=== PATIENT | female | born 2000 | race Asian ===

== ENCOUNTER 2022-04-06 23:33 | Emergency (ER) | payer OTHER ==
[~2022-04-06] VITALS: Ht 152.4 cm; Wt 59.9 kg
--- NOTE | 2022-04-07 | NUR ---
BIBS W/ MOM. "DYSTONIA" AND FEELING BURNING UP ENTIRE BODY. PATIENT IS AAOX4. ANXIOUS. -CP, -SOB. PLACED COMFORTABLY IN BED. VITALS CHECKED.
[2022-04-07] MEDS ORDERED: diphenhydrAMINE HCL 50 MG/ML VIAL ONE (00:04)
--- NOTE | 2022-04-07 00:12 | NUR ---
EKG DONE AT BEDSIDE
[2022-04-07] MEDS ORDERED: diphenhydrAMINE HCL 50 MG/ML VIAL IV ONE (00:30)
[2022-04-07 00:31] LABS: BASOPHILS % (AUTO) 0.3 % (0.0-2.0); EOSINOPHILS % (AUTO) 2.5 % (0.0-6.0); HEMATOCRIT 40 % (33-45); HEMOGLOBIN 13.3 g/dL (11.5-14.8); LYMPHOCYTES # (AUTO) 2.6 K/uL (0.8-4.8); MEAN CORPUSCULAR HGB CONC 33 g/dl (31.0-36.0); MEAN CORPUSCULAR VOLUME 92 fL (82-100); MONOCYTES # (AUTO) 0.6 K/uL (0.1-1.30); MONOCYTES % (AUTO) 5.7 % (2.0-12.0); NEUTROPHILS # (AUTO) 6.9 K/uL (1.8-8.9); NEUTROPHILS % (AUTO) 66.5 % (43.0-81.0); PLATELET COUNT (AUTO) 310 K/uL (150-450); RED BLOOD CELL COUNT(AUTO) 4.33 MIL/uL (4.0-5.2); WHITE BLOOD COUNT (AUTO) 10.3 K/uL (4.3-11.0)
[2022-04-07 00:47] LABS: CALCIUM, SERUM 9.5 mg/dL (8.5-10.1); CREATININE 0.8 mg/dL (0.6-1.3); POTASSIUM 3.9 mmol/L (3.5-5.1)
--- NOTE | 2022-04-07 02:01 | NUR ---
Patient discharged to home in stable condition. Written and verbal after care instructions given. Patient verbalizes understanding of instruction. Pt ambulatory with a steady gait
[2022-04-07 02:02] VITALS: BP 118/85
== END 2022-04-07 02:03 | disposition home or self-care (01) ==
LOC: ER 23:42
DX: T56.891A Toxic effect of other metals, accidental (unintentional), initial encounter (principal); G24.09 Other drug induced dystonia; Y92.89 Other specified places as the place of occurrence of the external cause
CPT/HCPCS: 99284; 93005; 36415; 96374; 85025; 80048; J1200